=== PATIENT | female | born 1990 | race Caucasian/White ===

== ENCOUNTER 2021-10-17 06:55 | Inpatient (IN) | payer OTHER ==
[2021-10-17] MEDS ORDERED: ELECTROLYTE-148 SOLN 1,000 ML IV SCH (08:00)
[2021-10-17] MEDS ORDERED: AMPICILLIN SODIUM 2 GM VIAL ONE (08:57)
[2021-10-17] MEDS ORDERED: PROMETHAZINE HCL 25 MG/1 ML VIAL IVPUSH ONE (09:28)
[2021-10-17] MEDS ORDERED: BUTORPHANOL TARTRATE 1 MG/ML VIAL IVPB ONE (09:28)
[2021-10-17] MEDS ORDERED: AMPICILLIN - 2 GM in SODIUM CHLORIDE 100 ML IVPB ONE (09:30)
[2021-10-17] MEDS ORDERED: BUTORPHANOL TARTRATE 2 MG/ML VIAL ONE (09:49)
[2021-10-17] MEDS ORDERED: PROMETHAZINE HCL 25 MG/1 ML VIAL ONE (09:49)
[2021-10-17 10:18] VITALS: BMI 28.0
[2021-10-17 10:20] LABS: INR 0.91 (0.83-1.09); PROTHROMBIN TIME (PATIENT) 10.4 SEC (9.7-13.0)
[2021-10-17 10:21] LABS: BASO % 0.2 % (0-2.0); EOS % 3.2 % (0-4.5); HEMATOCRIT 35.4 % (32.4-45.2); HEMOGLOBIN 12.1 GM/dL (10.7-15.3); LYMPH % 19.6 % (8-40); MCH 33.5 pg (25.7-33.7); MCHC 34.2 g/dl (32.0-36.0); MEAN PLT VOLUME 8.5 fl (7.5-11.1); MONO % 6.8 % (3.8-10.2); NEUT % 70.2 % (42.8-82.8); PLATELET COUNT 239 10^3/uL (134-434); RBC 3.61 M/mm3 (3.60-5.2); RDW 13.1 % (11.6-15.6); WHITE BLOOD COUNT 12.8 K/mm3 (4.0-10.0)
[2021-10-17 10:23] LABS: ACTIVATED PTT 24.9 SECONDS (25.2-36.5)
[2021-10-17] MEDS ORDERED: OXYTOCIN 30 UNITS in 0.9% NS 30 UNIT/500 ML INFUS.BAG IVPB ONE (10:29)
[2021-10-17] MEDS ORDERED: OXYTOCIN 30 UNITS in 0.9% NS 30 UNIT/500 ML INFUS.BAG IVPB SCH (10:30)
[2021-10-17 10:40] LABS: ALBUMIN 2.8 g/dl (3.4-5.0); CALCIUM 8.7 mg/dL (8.5-10.1)
[2021-10-17 10:43] LABS: CREATININE 0.7 mg/dL (0.55-1.3)
[2021-10-17 10:45] LABS: BILIRUBIN,TOTAL 0.4 mg/dL (0.2-1); TOT PROT 6.4 g/dl (6.4-8.2)
[2021-10-17] MEDS ORDERED: AMPICILLIN SODIUM 1 GM VIAL ONE (12:12)
[2021-10-17] MEDS ORDERED: OXYTOCIN 20 UNITS in 0.9% NS 20 UNIT/1,000 ML INFUS.BAG IV ONE (12:12)
[2021-10-17] MEDS: AMPICILLIN - 1 GM in SODIUM CHLORIDE 100 ML IVPB SCH ×2 (12:21→22:02)
[2021-10-17 12:28] LABS: EPI CELLS 6 /uL (0-25.1); HYALINE CASTS 0 /uL (0-3.1); URINE APPEARANCE CLEAR; URINE BACTERIA 6 /uL (0-1359); URINE BILIRUBIN NEGATIVE (NEGATIVE); URINE COLOR YELLOW; URINE GLUCOSE (UA) NEGATIVE (NEGATIVE); URINE KETONE NEGATIVE (NEGATIVE); URINE LEUK ESTERASE NEGATIVE (NEGATIVE); URINE NITRITE NEGATIVE (NEGATIVE); URINE PROTEIN NEGATIVE (NEGATIVE); URINE RBC 23 /uL (0-23.9); URINE WBC 5 /uL (0-25.8)
[2021-10-17] MEDS ORDERED: BISACODYL 10 MG SUPP.RECT RC PRN (13:37)
[2021-10-17] MEDS ORDERED: WITCH HAZEL 50% (TUCKS) 40 PAD/JAR PAD TP PRN (13:37)
[2021-10-17] MEDS ORDERED: oxyCODONE HCL 5 MG TABLET PO PRN (13:37)
[2021-10-17] MEDS ORDERED: ACETAMINOPHEN 325 MG TABLET (FP) PO PRN (13:37)
[2021-10-17] MEDS ORDERED: BENZOCAINE 28 GM HEMORRHOIDAL OINTMENT TP PRN (13:37)
[2021-10-17] MEDS ORDERED: BENZOCAINE 20% 57 GM BOTTLE TP PRN (13:37)
[2021-10-17] MEDS ORDERED: METHYLERGONOVINE MALEATE 0.2 MG/1 ML AMP IM PRN (13:37)
[2021-10-17] MEDS ORDERED: OXYTOCIN 20 UNITS in 0.9% NS 20 UNIT/1,000 ML INFUS.BAG IV SCH (13:45)
[2021-10-17 14:01] LABS: CORD HCO3 21.6 mmHg (20-29); CORD pH 7.132 (7.14-7.44)
[2021-10-17 14:04] LABS: CORD HCO3 20.8 mmHg (20-29); CORD PCO2 45.9 mmHg (30-78); CORD pH 7.274 (7.14-7.44)
[2021-10-17] MEDS: FERROUS SO4 325 MG TABLET (FP) PO SCH (17:50)
[2021-10-18] MEDS: AMPICILLIN - 1 GM in SODIUM CHLORIDE 100 ML IVPB SCH (00:32)
[2021-10-18] MEDS: IBUPROFEN 600 MG TABLET (FP) PO PRN ×4 (03:35→22:51)
[2021-10-18 07:15] LABS: EOS % 2.4 % (0-4.5); HEMATOCRIT 34.4 % (32.4-45.2); HEMOGLOBIN 11.5 GM/dL (10.7-15.3); LYMPH % 21.3 % (8-40); MCH 33.6 pg (25.7-33.7); MCHC 33.3 g/dl (32.0-36.0); MEAN CELL VOLUME 100.7 fl (80-96); MEAN PLT VOLUME 8.9 fl (7.5-11.1); MONO % 3.4 % (3.8-10.2); NEUT % 72.9 % (42.8-82.8); PLATELET COUNT 207 10^3/uL (134-434); RBC 3.41 M/mm3 (3.60-5.2); WHITE BLOOD COUNT 15.9 K/mm3 (4.0-10.0)
[2021-10-18] MEDS: FERROUS SO4 325 MG TABLET (FP) PO SCH ×2 (09:00→16:43)
[2021-10-18] MEDS: PRENATAL VITAMINS W/ FOLIC ACID TABLET (FP) PO SCH (09:03)
[2021-10-18 12:15] VITALS: RESP 18
[2021-10-18] MEDS ORDERED: SENNOSIDES/DOCUSATE COMBO (SENNA PLUS) TABLET (UD) PO PRN (22:00)
[2021-10-18 22:09] VITALS: TEMP 98
[2021-10-19 08:48] VITALS: BP 124/78; PULSE 80
[2021-10-19] MEDS: FERROUS SO4 325 MG TABLET (FP) PO SCH (09:20)
[2021-10-19] MEDS: PRENATAL VITAMINS W/ FOLIC ACID TABLET (FP) PO SCH (11:00)
[2021-10-19] MEDS ORDERED: RHO(D) IMMUNE GLOBULIN 1,500 UNIT DISP.SYRIN IM ONE (13:30)
== END 2021-10-19 15:30 | disposition home or self-care (01) | DRG 560 ==
LOC: JDEL 06:55 → JLDR 08:55 → J3W 14:50
PROVIDERS: ADMIT Obstetrics & Gynecology; ATTEND Obstetrics & Gynecology
PROC: 10E0XZZ Delivery of Products of Conception, External Approach (ICD-10-PCS; principal; 2021-10-17)
PROC: 10907ZC Drainage of Amniotic Fluid, Therapeutic from Products of Conception, Via Natural or Artificial Opening (ICD-10-PCS; 2021-10-17)
DX: O48.0 Post-term pregnancy (principal); O99.824 Streptococcus B carrier state complicating childbirth; B95.1 Streptococcus, group B, as the cause of diseases classified elsewhere; O69.81X0 Labor and delivery complicated by cord around neck, without compression, not applicable or unspecified; O69.89X0 Labor and delivery complicated by other cord complications, not applicable or unspecified; Z3A.40 40 weeks gestation of pregnancy; Z37.0 Single live birth
CPT/HCPCS: 36415; 36600; 59025; 59409; 80053; 81003; 82803; 85025; 85461; 85610; 85730; 86780; 86850; 86900; 86901; 86999; C9803-CS; J1561; U0003; U0005

== ENCOUNTER 2023-07-08 04:08 | Day surgery (SDC) | payer OTHER ==
[2023-07-02 17:18] VITALS: BMI 24.1
[2023-07-08] MEDS ORDERED: ONDANSETRON 4 MG/2 ML VIAL IVPUSH PRN (07:25)
[2023-07-08] MEDS ORDERED: oxyCODONE HCL 5 MG TABLET PO PRN ×2 (07:25)
[2023-07-08] MEDS ORDERED: LACTATED RINGERS SOLUTION 1,000 ML IV SCH (07:30)
[2023-07-08] MEDS ORDERED: DEXAMETHASONE SOD PHOSPHATE 4 MG/1 ML VIAL ONE (07:34)
[2023-07-08] MEDS ORDERED: LIDOCAINE HCL/PF 2% SDV 5ML VIAL ONE (07:34)
[2023-07-08] MEDS ORDERED: PROPOFOL 20 ML ONE (07:34)
[2023-07-08] MEDS ORDERED: FENTANYL CITRATE/PF 50 MCG/ML VIAL ONE ×2 (07:34→08:27)
[2023-07-08] MEDS ORDERED: MIDAZOLAM HCL 2 MG/2 ML SINGLE DOSE VIAL ONE (07:34)
[2023-07-08] MEDS ORDERED: ROCURONIUM BROMIDE 50 MG/5 ML SYRINGE ONE (08:18)
[2023-07-08] MEDS ORDERED: SUCCINYLCHOLINE CHLORIDE 200 MG/10 ML SYRINGE ONE (08:18)
[2023-07-08] MEDS ORDERED: OXYTOCIN 10 UNITS/ML VIAL ONE (09:13)
[2023-07-08] MEDS ORDERED: ACETAMINOPHEN 1000 MG/100 ML BAG IVPB ONE (09:34)
[2023-07-08] MEDS ORDERED: KETOROLAC TROMETHAMINE 30 MG/1 ML VIAL ONE (09:37)
[2023-07-08] MEDS ORDERED: ACETAMINOPHEN INJECTION 100 ML IVPB ONE (09:39)
[2023-07-08] MEDS: ACETAMINOPHEN 1000 MG/100 ML BAG IVPB ONE (09:45)
[2023-07-08] MEDS: RHO(D) IMMUNE GLOBULIN 1,500 UNIT DISP.SYRIN IM ONE (10:11)
[2023-07-08] MEDS: METHYLERGONOVINE MALEATE 0.2 MG TABLET (FP) PO SCH (11:00)
[2023-07-08 11:47] VITALS: RESP 20
[2023-07-08 13:56] VITALS: BP 106/60; PULSE 77; TEMP 98.4
== END 2023-07-08 13:45 | disposition home or self-care (01) ==
LOC: JASU-SURG 04:08
PROVIDERS: ATTEND Obstetrics & Gynecology
PROC: 10A07Z6 Abortion of Products of Conception, Vacuum, Via Natural or Artificial Opening (ICD-10-PCS; principal; 2023-07-08 09:00)
DX: Z33.2 Encounter for elective termination of pregnancy (principal); N91.1 Secondary amenorrhea
CPT/HCPCS: 86850; 86900; 86901; 88305-TC; 94760; 96372; J0131; J2790

== ENCOUNTER 2023-08-13 16:05 | Emergency (ER) | payer OTHER ==
[2023-08-13 16:15] VITALS: BP 139/84; PULSE 95; RESP 18; TEMP 98.2; BMI 24.1
[2023-08-13] MEDS: CEPHALEXIN MONOHYDRATE 500 MG CAPSULE (UD) PO ONE (18:00)
[2023-08-13] MEDS: DIPHTH,PERTUSS(ACELL),TET 0.5 ML DISP.SYRIN IM ONE (18:00)
[2023-08-13] MEDS: SILVER SULFADIAZINE 1% TOP CREAM 50 GM JAR TP ONE (18:00)
[2023-08-13] MEDS ORDERED: CEPHALEXIN MONOHYDRATE 500 MG CAPSULE (UD) ONE (18:05)
[2023-08-13] MEDS ORDERED: DIPHTH,PERTUSS(ACELL),TET 0.5 ML DISP.SYRIN IM ONE (18:05)
[2023-08-13] MEDS ORDERED: SILVER SULFADIAZINE 1% TOP CREAM 50 GM JAR TP ONE (18:05)
== END 2023-08-13 19:31 | disposition home or self-care (01) ==
LOC: JER 16:05
PROC: 3E0234Z Introduction of Serum, Toxoid and Vaccine into Muscle, Percutaneous Approach (ICD-10-PCS; principal; 2023-08-13)
DX: T24.211A Burn of second degree of right thigh, initial encounter (principal); X12.XXXA Contact with other hot fluids, initial encounter; Z23 Encounter for immunization
CPT/HCPCS: 90471; 90715; 99283-25